=== PATIENT | male | born 1995 | race Two or more races ===

== ENCOUNTER 2016-05-20 02:37 | Emergency (ER) | payer OTHER ==
[~2016-05-20 02:37] MED LIST: AUGMENTIN875 M1 PO; CORTISPORIN-TC10 M1 OT; IBUPROFEN PO; NAPROXEN PO; NO MEDICATIONS; TYLENOL #3 PO; VOLTAREN75 MG PO
[2016-05-20 02:48] LABS: INFLUENZA A NEG (NEG); INFLUENZA B NEG (NEG)
== END 2016-05-20 03:10 | disposition home or self-care (01) ==
LOC: SED 02:37
PROVIDERS: Emergency Medicine
DX: I88.9 Nonspecific lymphadenitis, unspecified (principal)
CPT/HCPCS: 87651; 87804; 99283